=== PATIENT | female | born 1935 | race Caucasian/White ===

== ENCOUNTER 2018-04-23 14:46 | Emergency (ER) | payer OTHER ==
[~2018-04-23] VITALS: Ht 152.4 cm; Wt 57.2 kg
[2018-04-23 15:51] LABS: HEMATOCRIT 39.8 % (36.0-46.0); HEMOGLOBIN 13.8 G/DL (11.9-15.5); MCH 32.3 PG (29.0-34.0); MCHC 34.7 G/DL (30.0-36.0); MCV 93.2 FL (83-99); PLATELET COUNT 210 K/uL (156-360); RBC DIS.WIDTH-CV 12.8 % (11.8-14.6); RBC DIS.WIDTH-SD 43.8 % (39-53); RED BLOOD COUNT 4.27 M/uL (3.80-5.20); WHITE BLOOD COUNT 17.7 K/uL (4.1-10.2)
[2018-04-23 15:59] LABS: ALBUMIN 4.1 g/dL (3.2-4.8)
[2018-04-23 16:00] LABS: CHLORIDE 106 mEq/L (99-109); SODIUM 139 mEq/L (136-147)
[2018-04-23 16:02] LABS: GLUCOSE 121 mg/dL (70-99); TOTAL PROTEIN 6.5 g/dL (6.4-8.3)
[2018-04-23 16:05] LABS: ALKALINE PHOSPHATASE 121 IU/L (3-129)
[2018-04-23 16:06] LABS: CREATININE 0.8 mg/dL (0.6-1.3)
[2018-04-23 16:07] LABS: AST (GOT) 13 IU/L (2-34); UREA NITROGEN (BUN) 22 mg/dL (9-23)
[2018-04-23 16:08] LABS: ALT (GPT) 14 IU/L (3-49); GFR ESTIMATE (CALCULATED) > 59 mL/min/; POTASSIUM 4.7 mEq/L (3.7-5.4)
[2018-04-23 17:58] LABS: APPEARANCE CLOUDY ((CLEAR)); BILIRUBIN NEGATIVE; BLOOD MODERATE; COLOR YELLOW ((YELLOW)); GLUCOSE (STRIP) NEGATIVE; KETONES 5; LEUKOCYTES LARGE; NITRITE POSITIVE; PROTEIN (STRIP) 100; SPECIFIC GRAVITY 1.021 (1.000-1.030); UROBILINOGEN 0.2 MG/DL (0.2-1.0)
[2018-04-23 18:22] LABS: EPITHELIAL CELLS RARE /HPF; MUCUS NONE SEEN /LPF; RED BLOOD CELLS RARE /HPF (0-5); UCUL ADDED? YES; WHITE BLOOD CELLS TNTC /HPF (0-5)
[2018-04-23 18:23] LABS: BACTERIA 1+ /HPF
[2018-04-23] MEDS ORDERED: KEFLEX500 MG PO (18:41)
[2018-04-23 18:57] VITALS: BP 125/61
== END 2018-04-23 20:08 ==
LOC: EME 14:46
PROVIDERS: Physician Assistant
DX: N39.0 Urinary tract infection, site not specified (principal); R41.0 Disorientation, unspecified; Z98.890 Other specified postprocedural states; Z79.02 Long term (current) use of antithrombotics/antiplatelets; K80.20 Calculus of gallbladder without cholecystitis without obstruction; K57.30 Diverticulosis of large intestine without perforation or abscess without bleeding; I25.10 Atherosclerotic heart disease of native coronary artery without angina pectoris; M43.16 Spondylolisthesis, lumbar region; Z87.891 Personal history of nicotine dependence
CPT/HCPCS: 74176; 80053; 81003; 83605; 85027; 87040; 87077; 87086 GA; 87186; 99281; 99285; J0696